=== PATIENT | male | born 1980 | race Caucasian/White ===

== ENCOUNTER 2018-01-04 19:17 | Inpatient (IN) | payer OTHER ==
[~2018-01-04] VITALS: Ht 182.8 cm; Wt 109.0 kg
[2018-01-04 19:22] VITALS: BP 133/88
[2018-01-04 19:59] LABS: BASO # 0.1 10*3/uL (0.0-0.1); BASO % 0.7 % (0.0-1.0); EOS # 0.1 10*3/uL (0.0-0.4); EOS % 1.1 % (1.0-4.0); HEMATOCRIT 43.4 % (42.0-52.0); HEMOGLOBIN 14.4 g/dl (14.0-18.0); LYMPH # 1.1 10*3/uL (1.3-4.4); LYMPH % 12.9 % (27.0-41.0); MEAN CELL VOLUME 81.9 fl (80.0-94.0); MEAN CORPUSCULAR HGB 27.2 pg (27.0-31.0); MEAN CORPUSCULAR HGB CONC 33.2 g/dl (33.0-37.0); MEAN PLATELET VOLUME 10.8 fl (9.6-12.3); MONO # 0.9 10*3/uL (0.1-1.0); MONO % 10.7 % (3.0-9.0); NEUT # 6.5 10*3/uL (2.3-7.9); NEUT % 74.3 % (47.0-73.0); PLATELET COUNT AUTOMATED 200 10*3/uL (130-400); RED CELL DISTRI WIDTH 12.7 % (0-14.5); WHITE BLOOD COUNT 8.7 10*3/uL (4.8-10.8)
[2018-01-04 20:39] LABS: ALBUMIN 3.7 gm/dl (3.1-4.5); ALKALINE PHOSPHATASE 72 U/L (45-117); BUN 8 mg/dl (7-24); CHLORIDE 105 mmol/L (98-107); CREATININE 1.22 mg/dL (0.70-1.30); POTASSIUM 4.3 mmol/L (3.5-5.1); SGOT/AST 30 IU/L (3-35); SGPT/ALT 40 U/L (12-78); SODIUM 139 mmol/L (136-145); TOTAL PROTEIN 7.1 gm/dL (6.4-8.2)
[2018-01-04 21:42] VITALS: BP 141/85
[2018-01-04 22:46] VITALS: BP 149/66
[2018-01-04 23:00] VITALS: BP 135/67
[2018-01-05 06:48] LABS: PHOSPHOROUS 2.5 mg/dL (2.5-4.9)
[2018-01-05 07:38] LABS: THYROID STIM HORMONE (HS) 2.59 uIU/ml (0.358-4.75)
[2018-01-05 07:56] LABS: VITAMIN D, 25-HYDROXY 13.8 ng/mL (30-100)
[2018-01-05 08:00] VITALS: BP 128/68
[2018-01-05 12:00] VITALS: BP 131/75
[2018-01-05 12:07] LABS: BASO # 0.1 10*3/uL (0.0-0.1); BASO % 0.7 % (0.0-1.0); EOS # 0.1 10*3/uL (0.0-0.4); EOS % 0.6 % (1.0-4.0); HEMATOCRIT 43.8 % (42.0-52.0); HEMOGLOBIN 14.3 g/dl (14.0-18.0); LYMPH # 1.3 10*3/uL (1.3-4.4); LYMPH % 14.9 % (27.0-41.0); MEAN CELL VOLUME 82.8 fl (80.0-94.0); MEAN CORPUSCULAR HGB CONC 32.6 g/dl (33.0-37.0); MEAN PLATELET VOLUME 10.8 fl (9.6-12.3); MONO # 0.8 10*3/uL (0.1-1.0); MONO % 8.9 % (3.0-9.0); NEUT # 6.4 10*3/uL (2.3-7.9); NEUT % 74.7 % (47.0-73.0); PLATELET COUNT AUTOMATED 214 10*3/uL (130-400); RED BLOOD COUNT 5.29 10*6/uL (4.50-5.90); RED CELL DISTRI WIDTH 12.9 % (0-14.5); WHITE BLOOD COUNT 8.5 10*3/uL (4.8-10.8)
[2018-01-05 16:00] VITALS: BP 133/70
[2018-01-05 20:00] VITALS: BP 146/76
[2018-01-06] VITALS: BP 118/69
[2018-01-06 08:45] VITALS: BP 124/74
[2018-01-06 12:00] VITALS: BP 128/59
[2018-01-06 16:00] VITALS: BP 118/71
[2018-01-06 20:00] VITALS: BP 119/61
[2018-01-07] VITALS: BP 123/68
[2018-01-07 06:40] LABS: BASO # 0.1 10*3/uL (0.0-0.1); EOS # 0.2 10*3/uL (0.0-0.4); EOS % 4.5 % (1.0-4.0); HEMOGLOBIN 12.7 g/dl (14.0-18.0); LYMPH # 1.8 10*3/uL (1.3-4.4); LYMPH % 36.3 % (27.0-41.0); MEAN CELL VOLUME 82.3 fl (80.0-94.0); MEAN CORPUSCULAR HGB 26.8 pg (27.0-31.0); MEAN CORPUSCULAR HGB CONC 32.6 g/dl (33.0-37.0); MEAN PLATELET VOLUME 10.9 fl (9.6-12.3); MONO # 0.5 10*3/uL (0.1-1.0); MONO % 9.5 % (3.0-9.0); NEUT # 2.5 10*3/uL (2.3-7.9); NEUT % 48.5 % (47.0-73.0); PLATELET COUNT AUTOMATED 220 10*3/uL (130-400); RED BLOOD COUNT 4.74 10*6/uL (4.50-5.90); RED CELL DISTRI WIDTH 12.5 % (0-14.5); WHITE BLOOD COUNT 5.1 10*3/uL (4.8-10.8)
[2018-01-07 07:09] LABS: CREATININE 0.89 mg/dL (0.70-1.30)
[2018-01-07] MEDS ORDERED: ZITHROMAX250 MG PO (09:10)
== END 2018-01-07 11:15 | disposition home or self-care (01) | DRG 871 ==
LOC: ED 19:17 → 5E 22:18 → EDHOLD 22:18 → 5E 22:24
PROVIDERS: Nurse Practitioner Family; Student in an Organized Health Care Education/Training Program
DX: A41.9 Sepsis, unspecified organism (principal); J18.9 Pneumonia, unspecified organism; D72.9 Disorder of white blood cells, unspecified; R73.9 Hyperglycemia, unspecified

== ENCOUNTER 2024-02-08 20:31 | Emergency (ER) | payer OTHER ==
[~2024-02-08] VITALS: Ht 187.9 cm; Wt 113.4 kg
[~2024-02-08 20:31] MED LIST: ZITHROMAX250 MG PO
[2024-02-08] MEDS ORDERED: AMOX-CLAV 875-1 EACH PO (20:56)
[2024-02-08] MEDS ORDERED: Amoxicillin/Clavulanate Pota 875 MG TAB PO ONE (21:00)
== END 2024-02-08 21:12 | disposition home or self-care (01) ==
LOC: ED 20:31
DX: H66.91 Otitis media, unspecified, right ear (principal); Z90.89 Acquired absence of other organs